=== PATIENT | male | born 1975 | race Caucasian/White ===

== ENCOUNTER 2024-02-27 09:22 | Emergency (ER) | payer OTHER ==
[~2024-02-27] VITALS: Ht 180.3 cm; Wt 180.2 kg
[~2024-02-27 09:22] MED LIST: AUGMENTIN 875-1 EACH PO; PERCOCET 5-3251 EACH PO
[2024-02-27] MEDS ORDERED: OMEPRAZOLE20 MG PO (09:40)
[2024-02-27] MEDS ORDERED: OZEMPIC2 MG/0.75 (09:40)
[2024-02-27] MEDS ORDERED: METFORMIN HCL500 M1 PO (09:41)
[2024-02-27] MEDS ORDERED: IBU600 MG PO (10:45)
[2024-02-27] MEDS ORDERED: IBUPROFEN 600 MG TAB PO ONE (10:45)
[2024-02-27 10:55] VITALS: BP 162/89
== END 2024-02-27 10:56 | disposition home or self-care (01) ==
LOC: ED 09:22
DX: S46.001A Unspecified injury of muscle(s) and tendon(s) of the rotator cuff of right shoulder, initial encounter (principal); M75.31 Calcific tendinitis of right shoulder; X58.XXXA Exposure to other specified factors, initial encounter
CPT/HCPCS: 73030; 99283-25; A9270